=== PATIENT | female | born 1960 | race Caucasian/White ===

== ENCOUNTER 2016-04-28 12:35 | Emergency (ER) ==
--- NOTE | 2016-04-28 12:42 | ED.PDOC ---
General ED Provider: Dr. FEI JACQUES JR Chief Complaint: Altered Mental Status Stated Complaint: woke up this am "not feeling well"-family states she is not diabetic but checked blood sugar at 120--pt c/o dizziness--feeling hot at times- -wanting to nap-severe headache[ End ]98.2 84 16 98% 111/71 08/17. had recent dental work/extraction--just finished antibiotic. 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 [employer] Time Seen by Physician: 12:54 Information Source: Patient Exam Limitations: No limitations Nursing and Triage Documentation Reviewed and Agree: No Review of Systems - Review Of Systems Constitutional: Reports: Malaise, Weakness Eyes: Reports: No symptoms Ears, Nose, Mouth, Throat: Reports: No symptoms Respiratory: Reports: Cough Cardiac: Reports: Lightheadedness GI: Reports: No symptoms : Reports: No symptoms Musculoskeletal: Reports: No symptoms Skin: Reports: No symptoms Neurological: Reports: Headache, Weakness, Other (dizziness) Endocrine: Reports: No symptoms Hematologic/Lymphatic: Reports: No symptoms All Other Systems: Other Past Medical History - Past Medical History Previously Healthy: Yes Endocrine: Reports: None Cardiovascular: Reports: None Respiratory: Reports: None Hematological: Reports: None Gastrointestinal: Reports: None Genitourinary: Reports: None Neuro/Psych: Reports: None Musculoskeletal: Reports: None Cancer: Reports: None - Surgical History General Surgical History: Reports: Other (LEFT UPPER MOLAR EXTRACTION NONTENDER) - Family History Family History: Reports: Diabetes (MOTHER), Cancer (FATHER LUNG 78 OF BRAIN METS) - Social History Smoking Status: Current every day smoker Physical Exam - Physical Exam Appearance: Ill-appearing, Thin Ill-appearing: Mild Pain Distress: Mild Eyes: RAMIREZ, EOMI, Conjunctiva clear ENT: Ears normal, Nose normal, Oropharynx normal Neck: Supple Respiratory: Airway patent, Breath sounds clear, Breath sounds equal, Respirations nonlabored Cardiovascular: RRR, Pulses normal, No rub, No murmur GI/: Soft, Nontender, No masses, Bowel sounds normal, No Organomegaly Musculoskeletal: Normal strength, ROM intact, No edema, No calf tenderness Skin: Warm, Dry, Normal color Neurological: Sensation intact, Motor intact, Reflexes intact, Cranial nerves intact, Alert, Oriented (NO NYSTAGMUS LAUGHS INAPPROPRIATELY) Interpretation - Radiology Interpretation Radiology Interpretation By: Radiologist Radiology Results: Negative (NACPD) Exam Interpreted: CXR, Other - EKG Interpretation Time of EKG #1: 13:05 Rate: Normal Rhythm: Sinus Ectopy: None Hensel: NL ST Segment: Normal Critical Care Note - Critical Care Note Total Time (mins): 10 Course - Course Hematology/Chemistry: 04/28/16 13:05 04/28/16 13:05 Orders, Labs, Meds: Lab Review 04/28/16 04/28/16 13:05 14:20 WBC 8.23 RBC 4.36 Hgb 14.1 Hct 40.1 MCV 92.0 MCH 32.3 H MCHC 35.2 RDW Coeff of Yuridia 12.6 Plt Count 253 Immature Gran % (Auto) 0.2 Neut % (Auto) 73.4 Lymph % (Auto) 18.2 Hale % (Auto) 6.4 Eos % (Auto) 1.3 Baso % (Auto) 0.5 Immature Gran # (Auto) 0.0 Neut # 6.0 Lymph # 1.5 Hale # 0.5 Eos # 0.1 Baso # 0.0 D-Dimer 0.46 Sodium 142 Potassium 3.9 Chloride 107 Carbon Dioxide 27 Anion Gap 11.9 BUN 12 Creatinine 0.72 Estimated GFR (MDRD) 84.00 BUN/Creatinine Ratio 16.66 Glucose 93 Lactic Acid 4.4 L Calcium 10.0 Total Bilirubin 0.40 AST 18 ALT 17 Alkaline Phosphatase 95 Total Creatine Kinase 77 Troponin I < 0.0100 B-Natriuretic Peptide 39 Total Protein 8.0 Albumin 4.0 Globulin 4.0 Albumin/Globulin Ratio 1.00 Procalcitonin < 0.05 Urine Color Yellow Urine Clarity Clear Urine pH 7.5 Ur Specific [place] 1.015 Urine Protein Negative Urine Glucose (UA) Negative Urine Ketones Negative Urine Blood 1+ Urine Nitrite Negative Urine Bilirubin Negative Urine Urobilinogen 0.2 Ur Leukocyte Esterase Negative Urine Microscopic RBC 2-5 Urine Microscopic WBC 0-2 Ur Squamous Epith Cells 2-5 Orders Category Date Time Status EKG-(ED ONLY) Stat CARDIO 04/28/16 12:41 Completed ED SIGN ERECTOR APPLIED .ONCE EMERGENCY 04/28/16 12:41 Active ED IV/MEDIPORT/POWERPORT .ONCE EMERGENCY 04/28/16 12:41 Active B-TYPE NATRIURETIC PEPTIDE Stat LAB 04/28/16 13:05 Completed BLOOD CULTURE Stat LAB 04/28/16 13:05 Received CBC W/ AUTO DIFF Stat LAB 04/28/16 13:05 Completed COMPREHENSIVE METABOLIC PANEL Stat LAB 04/28/16 13:05 Completed CREATINE KINASE Stat LAB 04/28/16 13:05 Completed D-DIMER Stat LAB 04/28/16 13:05 Completed LACTIC ACID Stat LAB 04/28/16 13:05 Completed PROCALCITONIN Stat LAB 04/28/16 13:05 Completed TROPONIN I Stat LAB 04/28/16 13:05 Completed UA [URINALYSIS C & S IF INDICATED] Stat LAB 04/28/16 14:20 Completed 0.9 % Sodium Chloride [Saline Flush] MEDS 04/28/16 12:41 Active 1 syr IVF PRN PRN CHEST, 1V AP ONLY Stat RADS 04/28/16 12:41 Completed Medications Generic Name Dose Route Start Last Admin Trade Name Freq PRN Reason Stop Dose Admin Sodium Chloride 1 syr 04/28/16 12:41 Saline Flush IVF PRN PRN To flush IV Vital Signs: Temp Pulse Resp BP Pulse Ox 04/28/16 12:36 98.2 F 84 16 111/71 98 Departure - Departure Time of Disposition: 14:40 Disposition: HOME SELF-CARE Discharge Problem: Malaise and fatigue, Acute viral syndrome Instructions: Viral Syndrome (ED) Condition: Good Pt referred to PMD for follow-up: Yes (none) Additional Instructions: rest increase clear liquids may us ibuprofen for pain may use antivert for dizziness recheck two to three weeks recheck urine may follow up with [facility] Prescriptions: Meclizine HCl [Antivert] 25 mg PO QID PRN #14 tablet PRN Reason: Dizziness Allergies/Adverse Reactions: Allergies codeine Adverse Reaction (Verified 04/28/16 12:44) Penicillins Adverse Reaction (Verified 04/28/16 12:44) Home Medications: Ambulatory Orders Meclizine HCl [Antivert] 25 mg PO QID PRN #14 tablet 04/28/16 Disposition Discussed With: Patient, Family
[2016-04-28 12:43] VITALS: BP 111/71; TEMP 98.2
--- NOTE | 2016-04-28 13:07 | DI ---
EXAM: Single view of the chest. History: Chest pain. Findings: Heart size is normal. No focal consolidation. No appreciable pleural fluid and no pneum othorax. No acute osseous abnormalities. Impression: No acute cardiopulmonary process.
[2016-04-28 13:17] LABS: BASOPHILS % (AUTO) 0.5 % (0.0-3.0); EOSINOPHILS # (AUTO) 0.1 K/ul (0.0-0.7); EOSINOPHILS % (AUTO) 1.3 % (0.0-7.0); HEMATOCRIT 40.1 % (37.0-47.0); HEMOGLOBIN 14.1 g/dl (12.0-16.0); IMMATURE GRANULOCYTE % (AUTO) 0.2 % (0.0-5.0); LYMPHOCYTES # (AUTO) 1.5 K/uL (0.60-3.4); LYMPHOCYTES % (AUTO) 18.2 (10.0-50.0); MEAN CORPUSCULAR HEMOGLOBIN 32.3 pg (27.0-31.0); MEAN CORPUSCULAR HGB CONC 35.2 (31.8-35.4); MONOCYTES # (AUTO) 0.5 K/uL (0.4-2.0); MONOCYTES % (AUTO) 6.4 (0-10); NEUTROPHILS % (AUTO) 73.4; PLATELET COUNT 253 10^3/uL (140-440); RED BLOOD COUNT 4.36 10^6/ul (4.20-5.40); WHITE BLOOD COUNT 8.23 K/ul (4.6-10.2)
[2016-04-28 13:44] LABS: ALANINE AMINOTRANSFERASE 17 U/L (12-78); ALKALINE PHOSPHATASE 95 U/L (42-98); ANION GAP 11.9; ASPARTATE AMINO TRANSFERASE 18 U/L (15-37); BLOOD UREA NITROGEN 12 mg/dL (7-18); BUN/CREATININE RATIO 16.66; CARBON DIOXIDE 27 mmol/L (21-32); CHLORIDE 107 mmol/L (98-107); CREATINE KINASE 77 U/L; CREATININE 0.72 mg/dL (0.60-1.30); GLUCOSE 93 mg/dL (70-110); POTASSIUM 3.9 mmol/L (3.5-5.10); SODIUM 142 mmol/L (136-145)
[2016-04-28 14:23] LABS: BILIRUBIN,URINE Negative (NEGATIVE); KETONES,URINE Negative (NEGATIVE); LEUKOCYTE ESTERASE ,URINE Negative (NEGATIVE); NITRITE,URINE Negative (NEGATIVE); PH,URINE 7.5 (5-9); PROTEIN,URINE Negative (NEGATIVE); URINE, BLOOD 1+ (NEGATIVE)
[2016-04-28 14:25] LABS: ADD URINE MICROSCOPIC YES
== END 2016-04-28 15:00 | disposition home or self-care (01) ==
LOC: ED 12:35
DX: B34.9 Viral infection, unspecified (principal); R53.83 Other fatigue
CPT/HCPCS: 36415; 80053; 81001; 82550; 83605; 83880; 84145; 84484; 85025; 85379; 87040; 93005; 93010; 99283